=== PATIENT | male | born 1995 | race Caucasian/White ===

== ENCOUNTER 2023-07-26 20:24 | Emergency (ER) | payer BC ==
[~2023-07-26] VITALS: Ht 175.3 cm; Wt 71.9 kg
[2023-07-26] MEDS: FLUORESCEIN OPHTH 1MG STRIP OD ONE (22:10)
[2023-07-26] MEDS: PROPARACAINE 0.5% OPHTH SOL 15ML OD ONE (22:10)
[2023-07-26] MEDS ORDERED: ERYT5OIN25 OD (22:43)
[2023-07-26] MEDS: ERYTHROMYCIN OPHTH OINT OD ONE (22:47)
[2023-07-26] MEDS: BOOSTRIX VACCINE (TETANUS/DIPHTH/ACEL. PERTUSSIS) 0.5ML SYR IM.IMMUN ONE (22:48)
[2023-07-26 22:55] VITALS: BP 136/92; TEMP 98.5; O2SAT 98
== END 2023-07-26 22:57 | disposition home or self-care (01) ==
LOC: M ED 20:24
DX: S05.01XA Injury of conjunctiva and corneal abrasion without foreign body, right eye, initial encounter (principal); Y92.9 Unspecified place or not applicable; Y93.9 Activity, unspecified; Y99.9 Unspecified external cause status; Z88.1 Allergy status to other antibiotic agents; Z88.8 Allergy status to other drugs, medicaments and biological substances; Z79.2 Long term (current) use of antibiotics; Z23 Encounter for immunization